=== PATIENT | female | born 1940 | race Caucasian/White ===

== ENCOUNTER 2024-07-06 15:26 | Observation (INO) ==
[2024-07-06] MEDS ORDERED: IOPAMIDOL 100 ML BOTTLE IV ONE (15:27)
[2024-07-06 15:56] LABS: Basophils # (Auto) 0.03 K/mcL (0.00-0.30); Basophils % (Auto) 0.3 % (0.0-2.0); Eosinophils # (Auto) 0.21 K/mcL (0.00-0.70); Eosinophils % (Auto) 1.9 % (0.0-7.0); Hematocrit 38.4 % (34.1-44.9); Hemoglobin 12.4 g/dL (11.2-15.7); Lymphocytes # (Auto) 2.21 K/mcL (1.50-4.80); Lymphocytes % (Auto) 20.4 % (15.5-49.0); Mean Cell Volume 96.7 fL (80.0-100.0); Mean Corpuscular HGB Conc 32.3 g/dL (31.0-36.0); Mean Platelet Volume 9.7 fL (8.8-12.5); Monocytes # (Auto) 0.88 K/mcL (0.10-0.90); Monocytes % (Auto) 8.1 % (1.0-12.0); Neutrophils % (Auto) 68.8 % (38.0-78.0); Platelet Count 230 K/mcL (140-440); RBC 3.97 M/mcL (3.59-5.38); Red Cell Distribution Width 13.2 % (11.5-14.5); WBC 10.8 K/mcL (4.5-11.0)
[2024-07-06] MEDS: 0.9 % SODIUM CHLORIDE 500 ML IV ONE (16:06)
[2024-07-06 16:13] LABS: ALT/SGPT 19 U/L (<40); AST/SGOT 14 U/L (<32); Albumin 3.8 gm/dL (3.2-5.2); Albumin/Globulin Ratio 1.7 (1.0-2.3); Alkaline Phosphatase 90 U/L (39-117); Bilirubin,Total 0.2 mg/dL (0.1-1.0); Blood Urea Nitrogen 25 mg/dL (8-23); Calcium 9.2 mg/dL (8.6-10.4); Carbon Dioxide 22 mmol/L (22-30); Chloride 105 mmol/L (96-108); Globulin 2.3 gm/dL (2.2-3.7); Glomerular Filtration Rate 37; Glucose 152 mg/dL (70-105); Potassium 3.5 mmol/L (3.3-5.1); Sodium 141 mmol/L (133-145)
[2024-07-06] MEDS: ASPIRIN 81 MG TAB.CHEW CHEWED ONE (17:32)
[2024-07-06] MEDS ORDERED: LABETALOL HCL 20 MG/4 ML VIAL IV PRN (21:37)
[2024-07-06] MEDS ORDERED: hydrALAZINE 20 MG/ML VIAL IV PRN (21:37)
[2024-07-06] MEDS ORDERED: ONDANSETRON 4 MG/2 ML VIAL IV PRN (21:37)
[2024-07-06] MEDS: SENNOSIDES 1 TABLET PO SCH (22:32)
[2024-07-06] MEDS: APIXABAN 5 MG TABLET PO SCH (22:32)
[2024-07-06] MEDS: 0.9 % SODIUM CHLORIDE 10 ML SYRINGE IV SCH (22:33)
[2024-07-07] MEDS: LEVOTHYROXINE 100 MCG TABLET PO SCH (07:49)
[2024-07-08] MEDS: ACETAMINOPHEN 1,000 MG/100 ML BAG IV PRN (01:06)
[2024-07-08 09:05] LABS: Basophils # (Auto) 0.04 K/mcL (0.00-0.30); Basophils % (Auto) 0.7 % (0.0-2.0); Eosinophils # (Auto) 0.19 K/mcL (0.00-0.70); Eosinophils % (Auto) 3.4 % (0.0-7.0); Lymphocytes # (Auto) 1.87 K/mcL (1.50-4.80); Lymphocytes % (Auto) 33.2 % (15.5-49.0); Mean Cell Volume 96.4 fL (80.0-100.0); Mean Corpuscular HGB Conc 32.4 g/dL (31.0-36.0); Mean Platelet Volume 9.5 fL (8.8-12.5); Monocytes # (Auto) 0.52 K/mcL (0.10-0.90); Monocytes % (Auto) 9.2 % (1.0-12.0); Platelet Count 222 K/mcL (140-440); RBC 3.84 M/mcL (3.59-5.38); WBC 5.6 K/mcL (4.5-11.0)
[2024-07-08 09:21] LABS: ALT/SGPT 15 U/L (<40); AST/SGOT 13 U/L (<32); Albumin 3.7 gm/dL (3.2-5.2); Albumin/Globulin Ratio 1.5 (1.0-2.3); Alkaline Phosphatase 90 U/L (39-117); Bilirubin,Total 0.3 mg/dL (0.1-1.0); Blood Urea Nitrogen 22 mg/dL (8-23); Calcium 9.1 mg/dL (8.6-10.4); Carbon Dioxide 25 mmol/L (22-30); Chloride 103 mmol/L (96-108); Globulin 2.4 gm/dL (2.2-3.7); Glomerular Filtration Rate 51; Glucose 117 mg/dL (70-105); Sodium 138 mmol/L (133-145)
[2024-07-08] MEDS: DILTIAZEM 120 MG CAP.XL.24H PO SCH (10:39)
[2024-07-09] MEDS: DILTIAZEM 120 MG CAP.XL.24H PO SCH (08:50)
== END 2024-07-09 10:30 | disposition home or self-care (01) ==
LOC: ED 15:26 → MEDSUR 15:26
PROVIDERS: ADMIT Internal Medicine; ATTEND Student in an Organized Health Care Education/Training Program

== ENCOUNTER 2025-06-26 14:35 | Inpatient (IN) ==
[2025-06-26 15:16] LABS: Basophils # (Auto) 0.01 K/mcL (0.00-0.30); Basophils % (Auto) 0.1 % (0.0-2.0); Eosinophils # (Auto) 0.06 K/mcL (0.00-0.70); Eosinophils % (Auto) 0.4 % (0.0-7.0); Hematocrit 36.7 % (34.1-44.9); Hemoglobin 11.6 g/dL (11.2-15.7); Lymphocytes # (Auto) 1.26 K/mcL (1.50-4.80); Lymphocytes % (Auto) 7.7 % (15.5-49.0); Mean Corpuscular HGB Conc 31.6 g/dL (31.0-36.0); Monocytes # (Auto) 0.82 K/mcL (0.10-0.90); Monocytes % (Auto) 5.0 % (1.0-12.0); Neutrophils % (Auto) 85.9 % (38.0-78.0); Platelet Count 188 K/mcL (140-440); RBC 3.84 M/mcL (3.59-5.38); WBC 16.4 K/mcL (4.5-11.0)
[2025-06-26 15:45] LABS: Creatine Kinase 438 U/L (24-170)
[2025-06-26 15:46] LABS: ALT/SGPT 22 U/L (<40); AST/SGOT 25 U/L (<32); Albumin 3.5 gm/dL (3.2-5.2); Albumin/Globulin Ratio 1.2 (1.0-2.3); Alkaline Phosphatase 84 U/L (39-117); Anion Gap 14.0 (8.0-16.0); Bilirubin,Total 0.6 mg/dL (0.1-1.0); Blood Urea Nitrogen 40 mg/dL (8-23); Calcium 8.7 mg/dL (8.6-10.4); Carbon Dioxide 23 mmol/L (22-30); Chloride 100 mmol/L (96-108); Globulin 2.9 gm/dL (2.2-3.7); Glucose 106 mg/dL (70-105); Potassium 3.6 mmol/L (3.3-5.1); Sodium 137 mmol/L (133-145)
[2025-06-26 15:48] LABS: Thyroid Stimulating Hormone 10.00 uIU/mL (0.27-5.01)
[2025-06-26] MEDS: ACETAMINOPHEN 1,000 MG/100 ML BAG IV ONE (16:39)
[2025-06-26] MEDS: cefTRIAXone 1 GM VIAL IV ONE (16:40)
[2025-06-26] MEDS: 0.9 % SODIUM CHLORIDE 1,000 ML IV ONE (16:41)
[2025-06-26 21:20] LABS: Bacteria,Urine Mod /hpf (0); Bilirubin,Urine NEGATIVE (Negative); Color,Urine YELLOW; Glucose,Urine (UA) NEGATIVE (Negative); Ketones,Urine NEGATIVE (Negative); Leukocyte Esterase,Urine NEGATIVE /uL (Negative); Mucus,Urine Few /hpf; PH,Urine 6.0 (5.0-9.0); Protein,Urine NEGATIVE (Negative); Specific Gravity,Urine 1.010 (1.000-1.035); Urobilinogen,Urine 0.2 mg/dL
[2025-06-26 22:10] LABS: Anion Gap 14.0 (8.0-16.0); Blood Urea Nitrogen 42 mg/dL (8-23); Calcium 8.5 mg/dL (8.6-10.4); Carbon Dioxide 22 mmol/L (22-30); Chloride 100 mmol/L (96-108); Glucose 79 mg/dL (70-105); Potassium 3.2 mmol/L (3.3-5.1); Sodium 136 mmol/L (133-145)
[2025-06-26 22:14] LABS: RBC Morphology NORMAL (Normal)
[2025-06-26] MEDS ORDERED: POLYETHYLENE GLYCOL 3350 17 GM PACKET PO PRN (23:11)
[2025-06-26] MEDS ORDERED: MAGNESIUM SULFATE 2 GM/50 ML BAG IV PRN (23:11)
[2025-06-26] MEDS ORDERED: ONDANSETRON 4 MG/2 ML VIAL IV PRN (23:11)
[2025-06-26] MEDS ORDERED: IPRATROPIUM/ALBUTEROL 3 ML AMPUL.NEB NEB PRN (23:11)
[2025-06-26] MEDS ORDERED: METOCLOPRAMIDE 10 MG/2 ML VIAL IV PRN (23:11)
[2025-06-26] MEDS ORDERED: POTASSIUM CHLORIDE 20 MEQ TABLET PO PRN (23:11)
[2025-06-26] MEDS ORDERED: POTASSIUM CHLORIDE 40 MEQ in DEXTROSE 5% IN WATER 500 ML IV PRN (23:11)
[2025-06-26] MEDS ORDERED: SENNOSIDES 1 TABLET PO PRN (23:11)
[2025-06-26] MEDS: 0.9 % SODIUM CHLORIDE 10 ML SYRINGE IV SCH (23:18)
[2025-06-26] MEDS: 0.9 % SODIUM CHLORIDE 1,000 ML IV SCH (23:18)
[2025-06-27] MEDS: ACETAMINOPHEN 325 MG TABLET PO PRN (01:26)
[2025-06-27] MEDS: ACETAMINOPHEN 325 MG TABLET PO ONE (01:33)
[2025-06-27 06:33] LABS: Basophils # (Auto) 0.02 K/mcL (0.00-0.30); Basophils % (Auto) 0.2 % (0.0-2.0); Eosinophils # (Auto) 0.16 K/mcL (0.00-0.70); Eosinophils % (Auto) 1.3 % (0.0-7.0); Hematocrit 33.0 % (34.1-44.9); Hemoglobin 10.7 g/dL (11.2-15.7); Lymphocytes # (Auto) 1.44 K/mcL (1.50-4.80); Lymphocytes % (Auto) 11.5 % (15.5-49.0); Mean Corpuscular HGB Conc 32.4 g/dL (31.0-36.0); Monocytes # (Auto) 0.66 K/mcL (0.10-0.90); Monocytes % (Auto) 5.3 % (1.0-12.0); Neutrophils % (Auto) 81.2 % (38.0-78.0); Platelet Count 203 K/mcL (140-440); RBC 3.45 M/mcL (3.59-5.38); WBC 12.5 K/mcL (4.5-11.0)
[2025-06-27 06:46] LABS: ALT/SGPT 17 U/L (<40); AST/SGOT 19 U/L (<32); Albumin 2.8 gm/dL (3.2-5.2); Albumin/Globulin Ratio 1.0 (1.0-2.3); Alkaline Phosphatase 73 U/L (39-117); Anion Gap 15.0 (8.0-16.0); Bilirubin,Direct < 0.2 mg/dL (0-0.3); Bilirubin,Total 0.3 mg/dL (0.1-1.0); Blood Urea Nitrogen 35 mg/dL (8-23); Calcium 8.3 mg/dL (8.6-10.4); Carbon Dioxide 19 mmol/L (22-30); Chloride 103 mmol/L (96-108); Creatine Kinase 331 U/L (24-170); Globulin 2.8 gm/dL (2.2-3.7); Glucose 72 mg/dL (70-105); Phosphorous 2.3 mg/dL (2.5-4.5); Potassium 3.3 mmol/L (3.3-5.1); Sodium 137 mmol/L (133-145); Triglycerides 149 mg/dL (<150); Uric Acid 7.7 mg/dL (2.5-8.0)
[2025-06-27] MEDS: LEVOTHYROXINE 150 MCG TABLET PO SCH (08:54)
[2025-06-27] MEDS: APIXABAN 5 MG TABLET PO SCH (08:54)
[2025-06-27] MEDS: DILTIAZEM 180 MG CAP.XL.24H PO SCH (08:54)
[2025-06-27] MEDS: DILTIAZEM 120 MG CAP.XL.24H PO SCH (08:54)
[2025-06-27] MEDS: DOCUSATE SODIUM 100 MG CAPSULE PO SCH (08:55)
[2025-06-27] MEDS: PREGABALIN 25 MG CAPSULE PO SCH (08:55)
[2025-06-27] MEDS: cefTRIAXone 2 GM in DEXTROSE 5% IN WATER 50 ML IV SCH (12:03)
[2025-06-27] MEDS: metroNIDAZOLE 500 MG/100 ML BAG IV SCH (12:45)
[2025-06-27] MEDS: MELATONIN 3 MG TABLET PO SCH (20:04)
[2025-06-28 06:16] LABS: Basophils # (Auto) 0.03 K/mcL (0.00-0.30); Basophils % (Auto) 0.4 % (0.0-2.0); Eosinophils # (Auto) 0.25 K/mcL (0.00-0.70); Eosinophils % (Auto) 3.1 % (0.0-7.0); Hematocrit 32.0 % (34.1-44.9); Hemoglobin 10.3 g/dL (11.2-15.7); Lymphocytes # (Auto) 1.47 K/mcL (1.50-4.80); Lymphocytes % (Auto) 18.0 % (15.5-49.0); Mean Corpuscular HGB Conc 32.2 g/dL (31.0-36.0); Monocytes # (Auto) 0.59 K/mcL (0.10-0.90); Monocytes % (Auto) 7.2 % (1.0-12.0); Neutrophils % (Auto) 70.0 % (38.0-78.0); Platelet Count 221 K/mcL (140-440); RBC 3.39 M/mcL (3.59-5.38); WBC 8.2 K/mcL (4.5-11.0)
[2025-06-28 06:40] LABS: ALT/SGPT 16 U/L (<40); AST/SGOT 14 U/L (<32); Albumin 3.0 gm/dL (3.2-5.2); Albumin/Globulin Ratio 1.3 (1.0-2.3); Alkaline Phosphatase 66 U/L (39-117); Anion Gap 12.0 (8.0-16.0); Bilirubin,Direct < 0.2 mg/dL (0-0.3); Bilirubin,Total 0.2 mg/dL (0.1-1.0); Blood Urea Nitrogen 21 mg/dL (8-23); Calcium 8.1 mg/dL (8.6-10.4); Carbon Dioxide 21 mmol/L (22-30); Chloride 106 mmol/L (96-108); Globulin 2.3 gm/dL (2.2-3.7); Glucose 85 mg/dL (70-105); Phosphorous 2.6 mg/dL (2.5-4.5); Potassium 3.1 mmol/L (3.3-5.1); Sodium 139 mmol/L (133-145); Triglycerides 144 mg/dL (<150); Uric Acid 7.4 mg/dL (2.5-8.0)
[2025-06-28] MEDS: POTASSIUM CHLORIDE 20 MEQ TABLET PO PRN (07:59)
[2025-06-28] MEDS ORDERED: ENALAPRILAT 1.25 MG/ML VIAL IV PRN (10:12)
[2025-06-29 06:27] LABS: Anion Gap 11.0 (8.0-16.0); Blood Urea Nitrogen 14 mg/dL (8-23); Calcium 8.1 mg/dL (8.6-10.4); Carbon Dioxide 20 mmol/L (22-30); Chloride 108 mmol/L (96-108); Glucose 104 mg/dL (70-105); Potassium 3.7 mmol/L (3.3-5.1); Sodium 139 mmol/L (133-145)
[2025-06-29 11:28] VITALS: TEMP 97.7; O2SAT 98
== END 2025-06-29 13:55 | DRG 392 ==
LOC: ED 14:35 → MEDSUR 23:07
PROVIDERS: ADMIT Internal Medicine; ATTEND Internal Medicine